=== PATIENT | female | born 1935 | race Caucasian/White ===

== ENCOUNTER 2017-05-30 14:04 | Inpatient (IN) | payer OTHER, BC ==
[~2017-05-30] VITALS: Ht 162.6 cm; Wt 65.8 kg
[2017-05-30 14:05] VITALS: BP 134/66
[2017-05-30] MEDS ORDERED: NAMENDA 10 MG T10 MG PO (14:18)
[2017-05-30] MEDS ORDERED: CELEBREX 200 M200 M1 PO (14:18)
[2017-05-30] MEDS ORDERED: WELLBUTRIN XL300 MG PO (14:18)
[2017-05-30] MEDS ORDERED: ALLOPURINOL 10100 M1 PO (14:18)
[2017-05-30] MEDS ORDERED: NORVASC5 MG PO (14:18)
[2017-05-30] MEDS ORDERED: TRAZODONE HCL50 MG PO (14:18)
[2017-05-30] MEDS ORDERED: VITAMIN D250000 UNIT PO (14:19)
[2017-05-30 15:07] VITALS: BP 134/66
[2017-05-30 15:22] LABS: HEMATOCRIT 41.1 % (37.0-47.0); HEMOGLOBIN 13.8 gm/dL (12.0-15.0); MCH 29.8 pg (26.0-34.0); MCHC 33.7 g/dL (28.0-37.0); MCV 88.6 fL (80.0-100.0); RBC 4.64 mil/uL (4.20-5.00); RDW 14.5 % (10.5-14.5); WBC 7.3 thou/uL (4.0-11.0)
[2017-05-30 15:29] LABS: CALCIUM 8.6 mg/dL (8.5-10.1); CREATININE 0.9 mg/dL (0.6-1.0); POTASSIUM 3.5 mmol/L (3.5-5.1)
[2017-05-30 16:14] VITALS: BP 109/68
[2017-05-30 16:49] VITALS: BP 126/66
[2017-05-30 19:35] VITALS: BP 148/65
[2017-05-30 23:25] VITALS: BP 143/69
[2017-05-31 09:08] VITALS: BP 133/65
[2017-05-31 19:59] LABS: URINE BILIRUBIN NEGATIVE (Negative); URINE BLOOD NEGATIVE (Negative); URINE CLARITY SL CLOUDY; URINE COLOR YELLOW; URINE GLUCOSE-RANDOM* NEGATIVE (Negative); URINE KETONES NEGATIVE (Negative); URINE LEUKOCYTES 1+ (Negative); URINE NITRITE POSITIVE (Negative); URINE PROTEIN (DIPSTICK) 2+ (Negative); URINE UROBILINOGEN 0.2 E.U./dl (0.2-1.0)
[2017-05-31 20:05] LABS: BACTERIA >30 Many /HPF (None Seen); CASTS None Seen /LPF (None Seen); SQUAMOUS 0-3 Few /LPF (0-3); URINE RBC None Seen /HPF (0-2); URINE WBC >25 Many /HPF (0-5)
[2017-05-31 20:06] VITALS: BP 136/66
[2017-05-31 20:06] LABS: CRYSTALS None Seen /LPF (None Seen)
[2017-06-01] VITALS: BP 120/64
[2017-06-01 04:00] VITALS: BP 126/74
[2017-06-01 07:57] VITALS: BP 113/73
[2017-06-01 09:04] VITALS: BP 113/73
[2017-06-01 17:58] VITALS: BP 129/74
[2017-06-01 20:00] VITALS: BP 130/77
[2017-06-02 04:00] VITALS: BP 150/89
[2017-06-02 08:09] VITALS: BP 143/84
[2017-06-02 15:42] VITALS: BP 137/79
[2017-06-02 21:46] VITALS: BP 151/84
[2017-06-03 05:50] VITALS: BP 158/81
[2017-06-03 09:46] VITALS: BP 172/108
[2017-06-03 18:00] VITALS: BP 144/76
[2017-06-03 20:00] VITALS: BP 122/70
[2017-06-04 07:34] VITALS: BP 125/66
[2017-06-04 17:17] VITALS: BP 135/85
[2017-06-04 20:00] VITALS: BP 152/78
[2017-06-05 04:00] VITALS: BP 106/67
[2017-06-05 08:00] VITALS: BP 113/61
[2017-06-05 17:05] VITALS: BP 104/60
[2017-06-05 20:00] VITALS: BP 102/58
[2017-06-06 04:00] VITALS: BP 113/48
[2017-06-06 05:30] LABS: ABSOLUTE NEUTROPHILS 4.8 thou/uL (1.4-8.2); BASOPHILS 0.6 % (0.0-2.0); EOSINOPHILS 3.6 % (0.0-3.0); HEMATOCRIT 38.1 % (37.0-47.0); HEMOGLOBIN 12.7 gm/dL (12.0-15.0); LYMPHOCYTES 23.7 % (24.0-44.0); MCH 30.1 pg (26.0-34.0); MCHC 33.4 g/dL (28.0-37.0); MCV 89.9 fL (80.0-100.0); MONOCYTES 8.6 % (1.0-8.0); PLATELET COUNT 269 thou/uL (150-400); POLYS 63.5 % (36.0-66.0); RBC 4.23 mil/uL (4.20-5.00); RDW 14.4 % (10.5-14.5); WBC 7.5 thou/uL (4.0-11.0)
[2017-06-06 05:42] LABS: CALCIUM 8.7 mg/dL (8.5-10.1); CREATININE 1.2 mg/dL (0.6-1.0); MAGNESIUM 2.1 mg/dL (1.8-2.4); POTASSIUM 3.4 mmol/L (3.5-5.1)
[2017-06-06 07:00] VITALS: BP 137/41
[2017-06-06] MEDS ORDERED: MELATONIN5 M1 PO (13:33)
[2017-06-06] MEDS ORDERED: NORCO 5-325 TA1 EACH PO (13:33)
[2017-06-06] MEDS ORDERED: TYLENOL325 MG PO (13:33)
[2017-06-06] MEDS ORDERED: NAMENDA 10 MG T10 MG PO (13:40)
[2017-06-06] MEDS ORDERED: ASA5UEC PO (13:56)
== END 2017-06-06 16:08 | DRG 563 ==
LOC: ER 14:04 → 4N 15:01 → EROBS 15:01 → 4N 16:26
PROVIDERS: Emergency Medicine; Registered Nurse
PROC: 2W3QX1Z Immobilization of Right Lower Leg using Splint (ICD-10-PCS; principal; 2017-05-30)
DX: S82.54XA Nondisplaced fracture of medial malleolus of right tibia, initial encounter for closed fracture (principal); N39.0 Urinary tract infection, site not specified; I10 Essential (primary) hypertension; F03.90 Unspecified dementia, unspecified severity, without behavioral disturbance, psychotic disturbance, mood disturbance, and anxiety; M10.9 Gout, unspecified; Z66 Do not resuscitate; M19.90 Unspecified osteoarthritis, unspecified site; F32.9 Major depressive disorder, single episode, unspecified; Z87.891 Personal history of nicotine dependence; Z79.899 Other long term (current) drug therapy; W17.89XA Other fall from one level to another, initial encounter; Y93.89 Activity, other specified; Y92.091 Bathroom in other non-institutional residence as the place of occurrence of the external cause; Y99.8 Other external cause status
CPT/HCPCS: 10091

== ENCOUNTER 2017-11-02 17:56 | Inpatient (IN) | payer OTHER, BC ==
[~2017-11-02] VITALS: Ht 157.5 cm; Wt 60.3 kg
--- NOTE | ~2017-11-02 | EKG ---
[address] [place] [address] ELECTROCARDIOGRAM REPORT Name: SUNSHINE ODEN Room #: 451-P ADM IN M.R.#: [id number] Admission: 11/02/17 Attend Phys: Tae Kurtz MD Discharge: Date of : 37 Report #: [id number] THIS REPORT FOR: //name// [facility] ED Test Date: 2017-11-02 Test Time: 20:33:25 Pat Name: SUNSHINE ODEN Department: Room: [facility] Gender: F Pipeliner: Sally RUIZ : 1935 Requested By: Yuliya Nicholson Order Number: [id number] MD: Tan Hernandez Measurements Intervals Sawyer Rate: 81 P: 71 WA: 169 QRS: 34 QRSD: 76 T: 86 QT: 471 QTc: 547 Interpretive Statements Sinus rhythm Borderline T abnormalities, anterior leads Prolonged QT interval Baseline wander in lead(s) V3 No previous ECG available for comparison Electronically Signed On 11-03-2017 10:14:21 CDT by Tan Hernandez [email or web address] <ELECTRONICALLY SIGNED> By: Tan Hernandez MD 11/03/17 1014 32 Tan Hernandez MD /PARTH
[~2017-11-02 17:56] MED LIST: ALLOPURINOL 10100 M1 PO; ASA5UEC PO; CELEBREX 200 M200 M1 PO; MELATONIN5 M1 PO; NAMENDA 10 MG T10 MG PO; NORCO 5-325 TA1 EACH PO; NORVASC5 MG PO; TRAZODONE HCL50 MG PO; TYLENOL325 MG PO; VITAMIN D250000 UNIT PO; WELLBUTRIN XL300 MG PO
[2017-11-02 17:57] VITALS: BP 137/68
[2017-11-02 20:29] LABS: ABSOLUTE NEUTROPHILS 4.1 thou/uL (1.4-8.2); BASOPHILS 0.6 % (0.0-2.0); EOSINOPHILS 2.5 % (0.0-3.0); HEMATOCRIT 41.1 % (37.0-47.0); LYMPHOCYTES 20.6 % (24.0-44.0); MCH 30.8 pg (26.0-34.0); MCHC 34.2 g/dL (28.0-37.0); MCV 90.1 fL (80.0-100.0); PLATELET COUNT 244 thou/uL (150-400); POLYS 68.3 % (36.0-66.0); RBC 4.56 mil/uL (4.20-5.00); RDW 13.7 % (10.5-14.5); WBC 6.1 thou/uL (4.0-11.0)
[2017-11-02 20:36] LABS: URINE BILIRUBIN NEGATIVE (Negative); URINE BLOOD NEGATIVE (Negative); URINE CLARITY SL CLOUDY; URINE COLOR YELLOW; URINE GLUCOSE-RANDOM* NEGATIVE (Negative); URINE KETONES NEGATIVE (Negative); URINE NITRITE-REFLEX NEGATIVE (Negative); URINE PROTEIN (DIPSTICK) 2+ (Negative)
[2017-11-02 20:40] LABS: CALCIUM 9.3 mg/dL (8.5-10.1); CREATININE 1.3 mg/dL (0.6-1.0); POTASSIUM 3.5 mmol/L (3.5-5.1)
[2017-11-02 20:45] LABS: URINE LEUKOCYTES-REFLEX 1+ (Negative)
[2017-11-02 20:46] LABS: BACTERIA-REFLEX >30 Many /HPF (None Seen); CASTS None Seen /LPF (None Seen); CRYSTALS None Seen /LPF (None Seen); SQUAMOUS 0-3 Few /LPF (0-3); URINE WBC-REFLEX >25 Many /HPF (0-5)
[2017-11-02 20:47] LABS: URINE RBC None Seen /HPF (0-2)
[2017-11-02 21:55] VITALS: BP 138/72
[2017-11-02 22:30] VITALS: BP 145/68
[2017-11-03 04:30] VITALS: BP 135/64
[2017-11-03 07:42] VITALS: BP 151/72
[2017-11-03 16:09] VITALS: BP 156/66
[2017-11-03 19:00] VITALS: BP 143/76
[2017-11-04 04:39] VITALS: BP 103/61
[2017-11-04 08:37] VITALS: BP 115/66
[2017-11-04] MEDS ORDERED: LEVAQUIN 500 M500 M2 PO (15:55)
[2017-11-04 16:09] VITALS: BP 115/66
== END 2017-11-04 17:21 | disposition home health service (06) | DRG 689 ==
LOC: ER 17:56 → EROBS 21:17 → 4W 22:40
PROVIDERS: Emergency Medicine
PROC: 0HQBXZZ Repair Right Upper Arm Skin, External Approach (ICD-10-PCS; principal; 2017-11-02)
DX: N39.0 Urinary tract infection, site not specified (principal); G93.41 Metabolic encephalopathy; S41.111A Laceration without foreign body of right upper arm, initial encounter; I10 Essential (primary) hypertension; M10.9 Gout, unspecified; M25.551 Pain in right hip; F03.90 Unspecified dementia, unspecified severity, without behavioral disturbance, psychotic disturbance, mood disturbance, and anxiety; W17.89XA Other fall from one level to another, initial encounter; Z79.2 Long term (current) use of antibiotics; Z87.891 Personal history of nicotine dependence; Z79.82 Long term (current) use of aspirin; Z79.899 Other long term (current) drug therapy; Y93.89 Activity, other specified; Y99.8 Other external cause status; Y92.810 Car as the place of occurrence of the external cause
CPT/HCPCS: 10045

== ENCOUNTER 2017-11-04 19:47 | Emergency (ER) | payer OTHER, BC ==
[~2017-11-04] VITALS: Ht 157.5 cm; Wt 63.5 kg
[~2017-11-04 19:47] MED LIST changes: +LEVAQUIN 500 M500 M2 PO
== END 2017-11-04 21:58 | disposition home or self-care (01) ==
LOC: ER 19:47
DX: S01.01XA Laceration without foreign body of scalp, initial encounter (principal); F03.90 Unspecified dementia, unspecified severity, without behavioral disturbance, psychotic disturbance, mood disturbance, and anxiety; I10 Essential (primary) hypertension; M10.9 Gout, unspecified; W18.30XA Fall on same level, unspecified, initial encounter; Y93.89 Activity, other specified; Y92.89 Other specified places as the place of occurrence of the external cause; Y99.8 Other external cause status